=== PATIENT | male | born 1955 | race Two or more races ===

== ENCOUNTER 2018-07-01 09:34 | Emergency (ER) | payer MEDICARE, MEDICAID ==
[~2018-07-01] VITALS: Ht 180.3 cm; Wt 61.7 kg
--- NOTE | 2018-07-01 09:52 | NUR ---
ED Nurse Note: Pt came in due to left eye swelling and redness since Friday afternoon. Complained of 4/10 pain around the eye socket. Scant discharge around the eye. Pt cannot open the left eye spontaneously. Hx of HIV and herpes. Pt started new medication since 06/19/18 of descovy and prezcobix.
[2018-07-01 09:55] VITALS: BP 112/74
[2018-07-01] MEDS ORDERED: PREZCOBIX 8001 EACH PO (09:55)
[2018-07-01] MEDS ORDERED: GABAPENTIN600 MG ORAL (09:58)
[2018-07-01] MEDS ORDERED: ZOVIRAX200 MG PO (09:58)
[2018-07-01] MEDS ORDERED: SERTRALINE HCL25 MG ORAL (09:58)
[2018-07-01] MEDS ORDERED: Fluorescein Strips RIGHT EYE ONE (10:00)
[2018-07-01] MEDS ORDERED: Tetracaine 0.5% Opth 4ml Soln RIGHT EYE ONE (10:00)
[2018-07-01] MEDS ORDERED: Tetracaine 0.5% Opth 4ml Soln ONE (10:01)
[2018-07-01] MEDS ORDERED: CEPHALEXIN500 MG ORAL (10:41)
[2018-07-01] MEDS ORDERED: Cephalexin 500mg cap ONE (10:41)
[2018-07-01] MEDS ORDERED: Cephalexin 500mg cap ORAL ONE (10:45)
--- NOTE | 2018-07-01 10:47 | Emergency Room Report ---
History of Present Illness General Chief Complaint: Eye Problems Source: Patient Present Illness HPI Patient is a 62-year-old male who presented after increased left eye discomfort. Patient had prior history of herpes as well as HIV. He had recently noticed increased swelling to his eyelid. He denies any recent trauma. He reports having increased discharge. As well as difficulty opening his eyelid. He denies any fever. Patient had prior history of HIV and reports having CD4 count approximately 708 undetectable viral load. Patient denies any visual changes. He denies any eye discomfort. Onset was 1 day.Patient had prior visual problems to his right eye. Left eye was noted to be more painful this morning. He has an try on baster to be follows with. Allergies: Coded Allergies: No Known Allergies (Unverified , 07/01/18) Patient History Past Medical History: see triage record Reviewed Nursing Documentation: PMH: Agreed; PSxH: Agreed Nursing Documentation-PMH Past Medical History: No History, Except For Hx Cardiac Problems: Yes - Herpes zoster, HIV +, retinal scarring right eye Hx Hypertension: Yes Review of Systems All Other Systems: negative except mentioned in HPI Physical Exam Vital Signs Date Time Temp Pulse Resp B/P (MAP) Pulse Ox O2 Delivery O2 Flow Rate FiO2 07/01/18 09:43 97.5 105 15 112/74 95 Room Air General Appearance: well appearing, no apparent distress, alert, GCS 15 Head: normocephalic, atraumatic Eyes: bilateral eye PERRL, bilateral eye other ENT: hearing grossly normal, normal voice Neck: full range of motion, supple Respiratory: normal inspection, no respiratory distress, speaking full sentences Cardiovascular #1: normal inspection Gastrointestinal: normal inspection Neurologic: normal inspection, alert, oriented x3, normal gait Psychiatric: mood/affect normal Skin: other - erythema to left eye periorbital lid, no corneal dye uptake Medical Decision Making Diagnostic Impression: Primary Impression: Cellulitis ER Course . Patient presented for left eyelid redness. Differential diagnosis include was not limited to periorbital cellulitis, dacryocystitis, herpes conjunctivitis among others. Patient has a benign exam and does not appear to require any further imaging or laboratory testing at this time. Patient appears to have a periorbital cellulitis. The orbit does not appear to be involved by the erythema. Patient was given oral Keflex patient's mental status appeared normal. He was advised to follow-up with ophthalmology for recheck.This medical record is generated with [employer] investigative assistant software. There may be some investigative assistant discrepancies related to use of this software Last Vital Signs Date Time Temp Pulse Resp B/P (MAP) Pulse Ox O2 Delivery O2 Flow Rate FiO2 07/01/18 09:55 97.5 105 15 112/74 95 Room Air Status: improved Disposition: HOME, SELF-CARE Condition: Stable Scripts Cephalexin* (KEFLEX*) 500 Mg Capsule 500 MG ORAL EVERY 6 HOURS, #28 CAP Prov: Reese Mayo MD 07/01/18 Patient Instructions: Cellulitis Additional Instructions: Follow up with your machine specialist for recheck. Return if worse, fever, increased pain. Reese Mayo MD Jul 01, 2018 10:47
[2018-07-01 10:58] VITALS: BP 112/74
--- NOTE | 2018-07-01 10:58 | NUR ---
ED Nurse Note: Pt is clear to be discharged by ERMD. Discharge paper and prescription given, pt verbalized understanding of discharge instruction. Aox4, VSS. Wristband removed. Pt ambulated out with steady gait with all belongings.
== END 2018-07-01 10:58 | disposition home or self-care (01) ==
LOC: EMR 10:19
DX: H00.036 Abscess of eyelid left eye, unspecified eyelid (principal); I10 Essential (primary) hypertension
CPT/HCPCS: 99283

== ENCOUNTER 2020-02-20 04:55 | Emergency (ER) | payer MEDICAID, MEDICARE ==
[~2020-02-20] VITALS: Ht 172.7 cm; Wt 68.0 kg
[~2020-02-20 04:55] MED LIST: CEPHALEXIN500 MG ORAL; GABAPENTIN600 MG ORAL; PREZCOBIX 8001 EACH PO; SERTRALINE HCL25 MG ORAL; ZOVIRAX200 MG PO
--- NOTE | 2020-02-20 05:00 | NUR ---
ED Nurse Note: Pt brought in by ambul[facility] from home c/o LT chest pressure like chest pain since 02/18. Per EMS, pain is intermittent; 03/02 pain. 2 spray of nitro and 325mg ASA given by EMS, pain 11/30. IV estbalisehd LT AC by EMS, Pt hx stent placement in 2017. patient ao4. changed into gown attached to monitor. hypertensive 170/120. presents in no acute distress. all safety measures met.
[2020-02-20 05:05] VITALS: BP 170/120
--- NOTE | 2020-02-20 05:05 | NUR ---
ED Nurse Note: IV access established. blood collected; sent down to lab. ekg done at bedside
[2020-02-20] MEDS: Aspirin Baby 81mg ORAL ONE ×2 (05:08→05:11)
[2020-02-20] MEDS ORDERED: ASPIRIN81 MG ORAL (05:19)
[2020-02-20] MEDS ORDERED: PLAVIX75 MG ORAL (05:19)
--- NOTE | 2020-02-20 05:20 | NUR ---
ED Nurse Note: imaging done at bedside by jose
--- NOTE | 2020-02-20 05:36 | Emergency Room Report ---
History of Present Illness General Chief Complaint: Chest Pain Present Illness HPI 64-year-old male with history of CAD status post stent placement at [facility] 2 years ago here with chest pain. The patient says that he woke this morning feeling severe chest pressure "like an elephant was sitting on my chest " and said that the pain was radiating down his bilateral arms. He said that he felt nauseous but did not vomit. When paramedics arrived the patient was complaining of severe pain and he received 2 nitroglycerin with only some mild resolution of his pain. Patient's initial blood pressure was 180/90 but after the nitroglycerin did drop to 80/60. Patient however was in no acute distress and said that he felt much improved. Says the chest pain is slightly improved now but he still feels it. No headaches, vision changes, fevers, chills, palpitations, shortness of breath, cough, back pain, abdominal pain, nausea, vomiting, diarrhea, dysuria. Allergies: Coded Allergies: No Known Allergies (Unverified , 07/01/18) COVID-19 Screening Contact w/high risk pt: No Experienced COVID-19 symptoms?: No COVID-19 Testing performed MASTER SHIP: No Nursing Documentation-PMH Hx Cardiac Problems: Yes - Herpes zoster, HIV +, retinal scarring right eye, stent placement 2018 Hx Hypertension: Yes Review of Systems All Other Systems: negative except mentioned in HPI Physical Exam Vital Signs Date Time Temp Pulse Resp B/P (MAP) Pulse Ox O2 Delivery O2 Flow Rate FiO2 02/19/20 04:54 98.4 90 18 170/120 (137) 99 Room Air Sp02 EP Interpretation: reviewed, normal General Appearance: no apparent distress, alert, GCS 15, non-toxic Head: normocephalic, atraumatic Eyes: bilateral eye normal inspection, bilateral eye PERRL ENT: hearing grossly normal, normal pharynx, no angioedema, normal voice Neck: full range of motion, supple/symm/no masses Respiratory: chest non-tender, lungs clear, normal breath sounds, speaking full sentences, other - 2 small operative incisions on the chest wall status post basal cell carcinoma removal Cardiovascular #1: regular rate, rhythm, no edema Cardiovascular #2: 2+ carotid (R), 2+ carotid (L), 2+ radial (R), 2+ radial (L) , 2+ dorsalis pedis (R), 2+ dorsalis pedis (L) Gastrointestinal: normal bowel sounds, non tender, soft, non-distended, no guarding, no rebound Rectal: deferred Genitourinary: normal inspection, no CVA tenderness Musculoskeletal: back normal, normal range of motion, calf tenderness, gait/ station normal, non-tender Neurologic: alert, motor strength/tone normal, oriented x3, sensory intact, responsive, speech normal Psychiatric: judgement/insight normal, memory normal, mood/affect normal, no suicidal/homicidal ideation Lymphatic: no adenopathy Medical Decision Making Diagnostic Impression: Primary Impression: Chest pain Additional Impression: ACS (acute coronary syndrome) ER Course EKG: Prolonged QRS 136 ms. Nonspecific intraventricular block. T wave inversions in lead III. Normal axis. No ectopy. Normal sinus rhythm 86 bpm. Laboratory Tests Test 02/20/20 05:05 White Blood Count 9.7 K/UL (4.8-10.8) Red Blood Count 4.44 M/UL (4.70-6.10) L Hemoglobin 14.9 G/DL (14.2-18.0) Hematocrit 44.5 % (42.0-52.0) Mean Corpuscular Volume 100 FL (80-99) H Mean Corpuscular Hemoglobin 33.6 PG (27.0-31.0) H Mean Corpuscular Hemoglobin Concent 33.5 G/DL (32.0-36.0) Red Cell Distribution Width 12.3 % (11.6-14.8) Platelet Count 291 K/UL (150-450) Mean Platelet Volume 8.3 FL (6.5-10.1) Neutrophils (%) (Auto) 47.0 % (45.0-75.0) Lymphocytes (%) (Auto) 38.8 % (20.0-45.0) Monocytes (%) (Auto) 9.8 % (1.0-10.0) Eosinophils (%) (Auto) 3.1 % (0.0-3.0) H Basophils (%) (Auto) 1.4 % (0.0-2.0) Sodium Level 137 MMOL/L (136-145) Potassium Level 4.5 MMOL/L (3.5-5.1) Chloride Level 102 MMOL/L (98-107) Carbon Dioxide Level 28 MMOL/L (21-32) Anion Gap 7 mmol/L (5-15) Blood Urea Nitrogen 18 mg/dL (7-18) Creatinine 1.3 MG/DL (0.55-1.30) Estimated Glomerular Filtration Rate 55.4 mL/min (>60) Glucose Level 112 MG/DL (74-106) H Calcium Level 9.2 MG/DL (8.5-10.1) Total Bilirubin 0.3 MG/DL (0.2-1.0) Aspartate Amino Transferase (AST) 28 U/L (15-37) Alanine Aminotransferase (ALT) 20 U/L (12-78) Alkaline Phosphatase 129 U/L (46-116) H Troponin I Pending Total Protein 7.8 G/DL (6.4-8.2) Albumin 3.8 G/DL (3.4-5.0) Globulin 4.0 g/dL Albumin/Globulin Ratio 0.9 (1.0-2.7) L 64-year-old male here with chest pain. H.E.A.R.T Score History: + 2 Highly Suspicious X +1 Moderately Suspicious +0 Slightly Suspicious EKG: {ekg findings:[id number]}. +2 ST depression +1 Non-specific X +0 Normal @AGE@ + 2 65 and over X +1 45-64 +0 44 and under Risk factors +2 for 3 or more X +1 for 1-2 +0 for 0 Hypercholesterolemia Hypertension Diabetes Mellitus Cigarette smoking Positive family history Obesity Troponin +2 3x upper limit or more +1 1-3x upper limit +0 Less than or equal to upper limit X 0-3: 2.5% risk of adverse cardiac event. 4-6: 20.3% risk of adverse cardiac event, suggesting admission to the hospital >7: 72.7% risk of adverse cardiac event, suggesting early invasive measures X Patient had a highly elevated heart score of 7. Very high risk chest pain and concerning story. EKG showed T wave inversions in lead III but otherwise did not show any evidence of acute ischemia. He had normal troponin. Repeat troponin will be drawn 2 hours after the first one. Patient received nitroglycerin and aspirin en route to the emergency department. He was in no distress here in the ER and said that he felt better. Patient will be admitted to telemetry floor. Currently awaiting placement. Signed out to oncoming physician. Last Vital Signs Date Time Temp Pulse Resp B/P (MAP) Pulse Ox O2 Delivery O2 Flow Rate FiO2 02/20/20 04:54 98.4 90 18 170/120 (137) 99 Room Air Neto Carranza M.D. Feb 20, 2020 05:36
[2020-02-20 05:38] LABS: ANION GAP 7 mmol/L (5-15); BLOOD UREA NITROGEN 18 mg/dL (7-18); CALCIUM 9.2 MG/DL (8.5-10.1); CARBON DIOXIDE 28 MMOL/L (21-32); CHLORIDE 102 MMOL/L (98-107); CREATININE 1.3 MG/DL (0.55-1.30); POTASSIUM 4.5 MMOL/L (3.5-5.1); SODIUM 137 MMOL/L (136-145)
[2020-02-20 05:40] LABS: BASOPHILS % (AUTO) 1.4 % (0.0-2.0); EOSINOPHILS % (AUTO) 3.1 % (0.0-3.0); HEMATOCRIT 44.5 % (42.0-52.0); HEMOGLOBIN 14.9 G/DL (14.2-18.0); LYMPHOCYTES % (AUTO) 38.8 % (20.0-45.0); MEAN CORPUSCULAR VOLUME 100 FL (80-99); MONOCYTES % (AUTO) 9.8 % (1.0-10.0); PLATELET COUNT 291 K/UL (150-450); RED BLOOD COUNT 4.44 M/UL (4.70-6.10); RED CELL DISTRIBUTION WIDTH 12.3 % (11.6-14.8); WHITE BLOOD COUNT 9.7 K/UL (4.8-10.8)
[2020-02-20 05:42] LABS: ALANINE AMINOTRANSFERASE 20 U/L (12-78); ALBUMIN 3.8 G/DL (3.4-5.0); ALBUMIN/GLOBULIN RATIO 0.9 (1.0-2.7); ALKALINE PHOSPHATASE 129 U/L (46-116); ASPARTATE AMINO TRANSFERASE 28 U/L (15-37); BILIRUBIN,TOTAL 0.3 MG/DL (0.2-1.0)
--- NOTE | 2020-02-20 05:54 | NUR ---
ED Nurse Note: RT at bedside for breathing treatment.
--- NOTE | 2020-02-20 06:00 | NUR ---
Spoke with Rafi, updated information given, will have her doctor to call us to speak with oncoming doctor()
[2020-02-20 06:05] VITALS: BP 104/68
--- NOTE | 2020-02-20 06:05 | Diagnostic Imaging Report ---
EXAM: XR Chest, 1 View CLINICAL HISTORY: Chest pain TECHNIQUE: Frontal view of the chest. COMPARISON: No relevant prior studies available. FINDINGS: Lungs: No definite airspace consolidation. Minimal pulmonary edema. Pleural space: Unremarkable. No pneumothorax. Heart: Cardiac silhouette is within normal limits. Mediastinum: There is no mediastinal widening or shift. Bones/joints: No acute osseous abnormality.. IMPRESSION: Minimal pulmonary edema. No airspace consolidation or pneumothorax.
[2020-02-20 06:06] VITALS: BP 100/64
--- NOTE | 2020-02-20 07:12 | NUR ---
HAND-OFF: Report given to pam morris. patient in stable condition. endorsed pending transfer.
[2020-02-20 07:51] VITALS: BP 128/78
--- NOTE | 2020-02-20 07:56 | NUR ---
ED Nurse Note: Patient was transfered to [facility], via private transportation [id number]. Patient AAO x4, VSS at this time, skin is warm to touch, has IV access on left AC 28ga saline lock. Patient was transfered with all belongings.
== END 2020-02-20 07:52 | disposition other institution (70) ==
LOC: EDBD 04:55 → EMR 05:14
DX: R07.9 Chest pain, unspecified (principal); I24.9 Acute ischemic heart disease, unspecified; I10 Essential (primary) hypertension; B20 Human immunodeficiency virus [HIV] disease; Z95.5 Presence of coronary angioplasty implant and graft; E78.00 Pure hypercholesterolemia, unspecified; E11.9 Type 2 diabetes mellitus without complications; F17.210 Nicotine dependence, cigarettes, uncomplicated; E66.9 Obesity, unspecified; Z68.22 Body mass index [BMI] 22.0-22.9, adult
CPT/HCPCS: 36415; 71045; 80053; 84484; 85025; 93005; 96360; 99284; J7030; U0002